=== PATIENT | male | born 1965 | race Caucasian/White ===

== ENCOUNTER 2017-07-27 10:25 | Emergency (ER) | payer MEDICAID ==
[2017-07-27] MEDS ORDERED: ONDANSETRON ODT 4 MG TABLET TL STA (12:12)
[2017-07-27] MEDS ORDERED: MECLIZINE 12.5 MG TABLET PO STA (12:12)
--- NOTE | 2017-07-27 12:15 | ED Physician Documentation ---
History of Present Illness - Stated complaint Stated Complaint: DIZZY - Chief complaint Chief Complaint: Neuro - History obtained from History obtained from: Patient - History of Present Illness Timing: Yesterday Pain level max: 0 Pain level now: 0 Improved by: Remaining still Worsened by: Moving - Additonal information Additional information: States that he became dizzy yesterday. Worse with changing positions, turning his head to the left or right and standing. Feels like the room is spinning around him. Denies any recent illnesses or travel. Has not had this happen to him before. No difficulty with speech, numbness or tingling in the extremities. Review of Systems Constitutional: denies: Fever, Chills Ears: denies: Ear pain Nose: denies: Rhinorrhea / runny nose, Congestion Throat: denies: Sore throat Cardiac: denies: Chest pain / pressure, Palpitations Respiratory: denies: Cough GI: reports: Nausea, Vomiting. denies: Abdominal Pain Musculoskeletal: reports: Back pain (Chronic and unchanged) Neurologic: denies: Focal weakness, Numbness, Confused, Altered mental status, Headache, Head injury PD PAST MEDICAL HISTORY - Past Medical History Cardiovascular: None Respiratory: None Endocrine/Autoimmune: None GI: None : Kidney stones HEENT: None Psych: None Musculoskeletal: None Derm: None - Past Surgical History Ortho: Other - Present Medications Home Medications: Ambulatory Orders Medication Instructions Recorded Confirmed Meclizine [Antivert] 25 mg PO Q6H PRN #20 tablet 07/27/17 Ondansetron Odt [Zofran] 4 mg TL Q6H PRN #10 tablet 07/27/17 - Allergies Allergies/Adverse Reactions: Allergies Allergy/AdvReac Type Severity Reaction Status Date / Time diphenhydramine Allergy Unknown Verified 07/27/17 10:49 [From Benadryl] - Social History Does the pt smoke?: Yes Smoking Status: Current every day smoker Does the pt drink ETOH?: No Substance Use and Type: Marijuana PD ED PE NORMAL - Vitals Vital signs reviewed: Yes - General General: Alert and oriented X 3, No acute distress - HEENT HEENT: PERRL, EOMI, Ears normal, Moist mucous membranes, Pharynx benign - Neck Neck: Supple, no meningeal sign - Cardiac Cardiac: RRR, Strong equal pulses - Respiratory Respiratory: No respiratory distress, Clear bilaterally - Abdomen Abdomen: Soft, Non tender, Non distended - Derm Derm: Warm and dry - Extremities Extremities: No edema, No calf tenderness / cord - Neuro Neuro: Alert and oriented X 3, 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, No motor deficit, No sensory deficit, Normal speech, Other (Positive Hallpike to the right) - Psych Psych: Normal mood, Normal affect Results - Vitals Vitals: Vital Signs - 24 hr 07/27/17 07/27/17 10:44 12:10 Temperature 36.5 C 36.7 C Heart Rate 89 78 Respiratory 16 20 Rate Blood Pressure 157/100 H 162/96 H O2 Saturation 95 99 Oxygen O2 Source Room air - EKG (time done) 1102 Rate: Rate (enter#) (71) Rhythm: NSR [place]: Normal Intervals: Normal DC QRS: Normal Ischemia: Normal ST segments Computer interpretation: Agree with computer PD MEDICAL DECISION MAKING - ED course Complexity details: reviewed results, re-evaluated patient, considered differential, d/w patient ED course: Patient is a 51-year-old gentleman who presents to the emergency department what appears to be benign paroxysmal positional vertigo. He is well-appearing, nontoxic. Afebrile. Feels better after meclizine, Zofran and a half somersault maneuver. We will continue supportive care and follow-up with his doctor. No evidence of stroke, intracranial hemorrhage. Patient counseled regarding signs and symptoms for which I believe and urgent re-evaluation would be necessary. Patient with good understanding of and agreement to plan and is comfortable going home at this time This document was made in part using voice recognition software. While efforts are made to proofread this document, sound alike and grammatical errors may occur. Departure - Departure Disposition: 01 Home, Self Care Clinical Impression: Vertigo Condition: Good Instructions: ED BPV Vertigo Follow-Up: your,doctor in 1 week [Other] Prescriptions: Meclizine [Antivert] 25 mg PO Q6H PRN #20 tablet PRN Reason: Vertigo Ondansetron Odt [Zofran] 4 mg TL Q6H PRN #10 tablet PRN Reason: Nausea / Vomiting Comments: Return if you worsen. This should improve over the next few days. You can try the half somersault maneuver or the Royer maneuver at home. There are videos on this on [employer]. It appears to be the right ear that is affected today Your blood pressure was elevated today on check in to the emergency department. This does not mean that you have hypertension, it is a common phenomenon to check into the emergency department and have elevated blood pressure. I recommend that you see your primary care physician within the week to have it rechecked when you're feeling better.
[2017-07-27] MEDS ORDERED: ONDANSETRON ODT 4 MG TABLET ONE (12:36)
[2017-07-27] MEDS ORDERED: MECLIZINE 12.5 MG TABLET PO ONE (12:36)
[2017-07-27 13:10] VITALS: BP 149/79
== END 2017-07-27 13:09 | disposition home or self-care (01) ==
LOC: ED 10:25
DX: R42 Dizziness and giddiness (principal); R03.0 Elevated blood-pressure reading, without diagnosis of hypertension; F17.200 Nicotine dependence, unspecified, uncomplicated
CPT/HCPCS: 93005; 99283; A9270; Q0162

== ENCOUNTER 2020-06-20 09:12 | Emergency (ER) | payer MEDICAID ==
[2020-06-20 09:33] VITALS: BP 151/106
[2020-06-20 09:56] LABS: RAPID STREP SCREEN Negative (Negative)
[2020-06-20] MEDS ORDERED: PENICILLIN VK 250 MG TABLET PO STA (10:00)
[2020-06-20] MEDS ORDERED: CHERRY SYRUP 10 ML UDC PO ONE (10:00)
[2020-06-20] MEDS ORDERED: DEXAMETHASONE 10 MG/ML VIAL PO STA (10:00)
[2020-06-20] MEDS ORDERED: IBUPROFEN 800 MG TABLET PO STA (10:00)
--- NOTE | 2020-06-20 10:07 | ED Physician Documentation ---
History of Present Illness - Stated complaint Stated Complaint: SORE THROAT - Chief complaint Chief Complaint: Heent - History obtained from History obtained from: Patient - History of Present Illness Timing: How many days ago (2) Pain level max: 6 Pain level now: 6 - Additonal information Additional information: 54-year-old male presents to the emergency department with a sore throat for the past 2 days. No fevers. No cough. No nausea or vomiting. Worse with swallowing, no recent travel. Does smoke. Review of Systems Constitutional: denies: Fever, Chills GI: denies: Vomiting, Diarrhea Skin: denies: Rash Musculoskeletal: denies: Neck pain, Back pain Neurologic: denies: Headache PD PAST MEDICAL HISTORY - Past Medical History Cardiovascular: None Respiratory: None Endocrine/Autoimmune: None GI: None : Kidney stones HEENT: None Psych: None Musculoskeletal: None Derm: None - Past Surgical History Past Surgical History: Yes Ortho: Other - Present Medications Home Medications: Ambulatory Orders Medication Instructions Recorded Confirmed Meclizine [Antivert] 25 mg PO Q6H PRN #20 tablet 07/27/17 Ondansetron Odt [Zofran] 4 mg TL Q6H PRN #10 tablet 07/27/17 Ibuprofen [Motrin] 800 mg PO Q8H PRN #30 tablet 06/20/20 Penicillin V Potassium 500 mg PO Q6HR #40 tablet 06/20/20 - Allergies Allergies/Adverse Reactions: Allergies Allergy/AdvReac Type Severity Reaction Status Date / Time diphenhydramine Allergy Unknown Verified 06/20/20 09:33 [From Benadryl] - Social History Does the pt smoke?: Yes Smoking Status: Current every day smoker Does the pt drink ETOH?: No Substance Use and Type: Marijuana - POLST Patient has POLST: No PD ED PE NORMAL - Vitals Vital signs reviewed: Yes - General General: Alert and oriented X 3, No acute distress - HEENT HEENT: Moist mucous membranes, Other (Posterior oropharynx is erythematous with tonsillar exudates. Normal phonation. No trismus. Uvula midline.) - Neck Neck: Supple, no meningeal sign, Other (Shotty anterior lymphadenopathy) - Cardiac Cardiac: RRR - Respiratory Respiratory: No respiratory distress, Clear bilaterally - Abdomen Abdomen: Soft, Non tender, Non distended - Derm Derm: Warm and dry - Neuro Neuro: Alert and oriented X 3 - Psych Psych: Normal mood, Normal affect Results - Vitals Vitals: Vital Signs - 24 hr 06/20/20 09:20 Temperature 36.3 C L Heart Rate 103 H Respiratory 16 Rate Blood Pressure 151/106 H O2 Saturation 98 Oxygen O2 Source Room air - Labs Labs: Laboratory Tests 06/20/20 09:37 Group A Strep Rapid Negative PD MEDICAL DECISION MAKING - ED course Complexity details: considered differential, d/w patient ED course: Patient with what appears to be strep pharyngitis clinically. He is well- appearing, nontoxic. Afebrile. No evidence of peritonsillar or retropharyngeal abscess. Normal phonation. No trismus. Patient counseled regarding signs and symptoms for which I believe and urgent re-evaluation would be necessary. Patient with good understanding of and agreement to plan and is comfortable going home at this time This document was made in part using voice recognition software. While efforts are made to proofread this document, sound alike and grammatical errors may occur. Departure - Departure Disposition: 01 Home, Self Care Clinical Impression: Strep pharyngitis Condition: Good Instructions: ED Strep Pharyngitis Poss Follow-Up: Your,doctor in 1 week [Other] Prescriptions: Penicillin V Potassium 500 mg PO Q6HR #40 tablet Ibuprofen [Motrin] 800 mg PO Q8H PRN #30 tablet PRN Reason: PAIN &/OR FEVER Comments: Take all antibiotics until gone. Return if you worsen. Follow-up with your doctor for further care. Discharge Date/Time: 06/20/20 10:00
== END 2020-06-20 10:00 | disposition home or self-care (01) ==
LOC: ED 09:12
DX: J02.0 Streptococcal pharyngitis (principal); F17.200 Nicotine dependence, unspecified, uncomplicated
CPT/HCPCS: 87070; 87430; 99283; 99284; A9270

== ENCOUNTER 2020-06-22 20:16 | Observation (INO) | payer MEDICAID ==
--- NOTE | 2020-06-22 20:18 | ED Physician Documentation ---
PD HPI ABD PAIN - Stated complaint Stated Complaint: LLQ PX - History obtained from History obtained from: Patient - History of Present Illness Timing - onset: Last night Timing - details: Gradual onset Pain level max: 8 Pain level now: 4 Quality: Cramping, Pain Location: All over / everywhere Radiation: Lower back (unclear if abd. pain is radiating to back or if this part of his chronic LBP) Improved by: Other (nothing) Worsened by: Eating Associated symptoms: Nausea. No: Fever, Vomiting, Diarrhea, Constipation Recently seen: Emergency Dept (T+R 2 days ago from this ED for pharyngitis) - Additional information Additional information: c/o abdominal pain, waxing and waning, since last night approximately 6 PM shortly after eating dinner. Pain has been constant since then, waxing and waning with diaphoresis when it is sever, predominantly across lower abdomen, worse with PO intake. Review of Systems Constitutional: reports: Sweats. denies: Fever, Chills Cardiac: reports: Reviewed and negative Respiratory: reports: Reviewed and negative GI: reports: Abdominal Pain, Nausea. denies: Abdominal Swelling, Vomiting, Constipation, Diarrhea : denies: Dysuria, Frequency Skin: denies: Rash Musculoskeletal: reports: Back pain PD PAST MEDICAL HISTORY - Past Medical History Cardiovascular: None Respiratory: None Endocrine/Autoimmune: None GI: None : Kidney stones HEENT: None Psych: None Musculoskeletal: None Derm: None - Past Surgical History Past Surgical History: Yes Ortho: Other - Present Medications Home Medications: Ambulatory Orders Medication Instructions Recorded Confirmed Meclizine [Antivert] 25 mg PO Q6H PRN #20 tablet 07/27/17 Ondansetron Odt [Zofran] 4 mg TL Q6H PRN #10 tablet 07/27/17 Ibuprofen [Motrin] 800 mg PO Q8H PRN #30 tablet 06/20/20 Penicillin V Potassium 500 mg PO Q6HR #40 tablet 06/20/20 Cephalexin [Keflex] 500 mg PO Q6H #28 capsule 06/22/20 Lidocaine Viscous 2% [Xylocaine 15 ml PO Q4H PRN #1 bottle 06/22/20 Viscous 2%] Ondansetron Odt [Zofran] 4 mg TL Q6H PRN #10 tablet 06/22/20 - Allergies Allergies/Adverse Reactions: Allergies Allergy/AdvReac Type Severity Reaction Status Date / Time diphenhydramine Allergy Unknown Verified 06/20/20 09:33 [From Benadryl] - Social History Does the pt smoke?: Yes Smoking Status: Current every day smoker Does the pt drink ETOH?: No - POLST Patient has POLST: No PD ED PE NORMAL - Vitals Vital signs reviewed: Yes - General General: Alert and oriented X 3, No acute distress, Well developed/nourished - HEENT HEENT: Moist mucous membranes - Neck Neck: Supple, no meningeal sign - Cardiac Cardiac: RRR, No murmur, No gallop, No rub - Respiratory Respiratory: No respiratory distress, Clear bilaterally - Abdomen Abdomen: Soft, Non distended, Other (mild TTP, worst in LLQ) - Back Back: No CVA TTP - Derm Derm: Normal color, Warm and dry, No rash PD ED PE EXPANDED - HEENT HEENT: Pharyngeal erythema (mild posterior oropharyngeal edema and mild edema, L>R; no exudate) Results - Vitals Vitals: Vital Signs - 24 hr 06/22/20 06/22/20 06/22/20 20:22 20:25 22:30 Temperature 35 C L 37 C 36.9 C Heart Rate 92 96 Respiratory 20 18 Rate Blood Pressure 158/98 H 148/96 H O2 Saturation 96 95 06/23/20 00:30 Temperature 36.8 C Heart Rate 87 Respiratory 16 Rate Blood Pressure 147/89 H O2 Saturation 96 Oxygen O2 Source Room air - Labs Labs: Laboratory Tests 06/22/20 06/22/20 06/22/20 20:42 20:42 21:40 WBC 13.9 H RBC 5.06 Hgb 15.8 Hct 46.2 MCV 91.3 MCH 31.2 H MCHC 34.2 RDW 14.2 Plt Count 305 MPV 9.9 Neut # (Auto) 10.0 H Lymph # (Auto) 2.6 [place] # (Auto) 1.0 Eos # (Auto) 0.2 Baso # (Auto) 0.1 Absolute Nucleated RBC 0.00 Nucleated RBC % 0.0 Sodium 135 Potassium 3.5 Chloride 100 L Carbon Dioxide 26 Anion Gap 9.0 BUN 14 Creatinine 0.6 Estimated GFR (MDRD) 139 Glucose 112 H Calcium 8.5 Total Bilirubin 0.7 AST 19 ALT 23 Alkaline Phosphatase 79 Total Protein 7.1 Albumin 3.7 Globulin 3.4 Albumin/Globulin Ratio 1.1 Lipase 19 L Urine Color YELLOW Urine Clarity CLEAR Urine pH 7.5 Ur Specific [place] 1.010 Urine Protein NEGATIVE Urine Glucose (UA) NEGATIVE Urine Ketones NEGATIVE Urine Occult Blood NEGATIVE Urine Nitrite NEGATIVE Urine Bilirubin NEGATIVE Urine Urobilinogen 0.2 (NORMAL) Ur Leukocyte Esterase NEGATIVE Ur Microscopic Review NOT INDICATED Urine Culture Comments NOT INDICATED - Rads (name of study) CT A/P Radiology: Prelim report reviewed, See rad report RUQ US Radiology: Prelim report reviewed, See rad report PD MEDICAL DECISION MAKING - ED course Complexity details: reviewed old records, reviewed results, re-evaluated patient, considered differential, d/w patient ED course: On reevaluation, after blood tests and CT resulted, patient is resting comfortably and in NAD. Results d/w patient; although he says his pain has subsided, he voices concern that his symptoms have seemed to reliably return with any PO intake. Given maalox and viscous lidocaine which resulted in abrupt return of his abdominal pain and obvious painful distress with diaphoresis. He now indicates his pain is in RUQ and epigastrium. D/W Dr. Queen; agrees patient is appropriate for observation but says he cannot enter orders at this time as he has no computer at home. D/W Dr. Sesay, will admit to [facility] with surgery consult. Departure - Departure Disposition: ED Place in Observation Clinical Impression: Abdominal pain Qualifiers: Abdominal location: generalized Qualified Code(s): R10.84 - Generalized abdominal pain Condition: Stable Discharge Date/Time: 06/23/20 01:58
[2020-06-22] MEDS ORDERED: PANTOPRAZOLE 40 MG VIAL IVP STA (20:37)
[2020-06-22] MEDS ORDERED: SODIUM CHLORIDE 0.9% 1,000 ML IV STA (20:37)
[2020-06-22] MEDS ORDERED: ONDANSETRON 4 MG/2 ML VIAL IVP STA (20:37)
[2020-06-22 20:49] LABS: BASOPHILS # (AUTO) 0.1 10^3/uL (0.0-0.1); BASOPHILS % (AUTO) 0.4 %; EOSINOPHILS # (AUTO) 0.2 10^3/uL (0.0-0.7); EOSINOPHILS % (AUTO) 1.4 %; HGB - HEMOGLOBIN 15.8 g/dL (14.0-18.0); LYMPHOCYTES # (AUTO) 2.6 10^3/uL (1.5-3.5); LYMPHOCYTES % (AUTO) 18.5 %; MEAN CORPUSCULAR HEMOGLOBIN 31.2 pg (27.0-31.0); MEAN CORPUSCULAR HGB CONC 34.2 g/dL (32.0-36.0); MEAN CORPUSCULAR VOLUME 91.3 fL (80.0-94.0); MEAN PLATELET VOLUME 9.9 fL (7.4-11.4); MONOCYTES % (AUTO) 6.9 %; NEUTROPHILS % (AUTO) 72.3 %; PLT - PLATELET COUNT 305 10^3/uL (130-450); RED BLOOD COUNT 5.06 10^6/uL (4.70-6.10); RED CELL DISTRIBUTION WIDTH 14.2 % (12.0-15.0); WHITE BLOOD COUNT 13.9 x10^3/uL (4.8-10.8)
[2020-06-22] MEDS ORDERED: IOVERSOL 320 100 ML VIAL IVP ONE ×3 (20:59→22:13)
[2020-06-22 21:03] LABS: ALBUMIN 3.7 g/dL (3.2-5.5); ALBUMIN/GLOBULIN RATIO 1.1 (1.0-2.2); BILIRUBIN,TOTAL 0.7 mg/dL (0.2-1.0); CALCIUM 8.5 mg/dL (8.5-10.3); CREATININE 0.6 mg/dL (0.6-1.2); TOTAL PROTEIN 7.1 g/dL (6.7-8.2)
--- NOTE | 2020-06-22 21:50 | CT Report ---
PROCEDURE: Abdomen/Pelvis W INDICATIONS: abd. pain CONTRAST: IV CONTRAST: Optiray 320 ml: 100 PO CONTRAST: *NO PO CONTRAST TECHNIQUE: After the administration of intravenous contrast, 5 mm thick sections acquired from the diaphragms to the symphysis. 5 mm thick coronal and sagittal reformats were acquired. For radiation dose reducti on, the following was used: automated exposure control, adjustment of mA and/or kV according to amrita ent size. COMPARISON: None. FINDINGS: Image quality: Excellent. ABDOMEN: Lung bases: Lung bases are clear. Heart size is normal. Solid organs: Liver and spleen are normal in size and enhancement. Calcified gallstones are layering in the gallbladder fundus. No gallbladder wall thickening or pericholecystic fluid. Biliary system i s non dilated. Pancreas enhances normally. No discrete adrenal gland nodules; however there is nodul ar thickening of the bilateral adrenal glands which may be associated with small adrenal adenomas. Ki dneys demonstrate normal size and enhancement, without hydronephrosis. A low density cystic lesion i s present at the upper pole of the right kidney. A nonobstructing 4 mm calculus is present at the low er pole of the left kidney. Peritoneum and bowel: Bowel loops demonstrate normal wall thickness and caliber. The appendix is thi n-walled and gas-filled. There are scattered sigmoid colon diverticular outpouchings. No mucosal thic kening or pericolonic fat stranding. No free fluid or air. Nodes and vessels: No retroperitoneal or mesenteric adenopathy by size criteria. Aorta and inferior vena cava are normal in size. Miscellaneous: No ventral hernias. PELVIS: Genitourinary: Bladder wall thickness is normal. Miscellaneous: No inguinal adenopathy. There are small bilateral fat-containing inguinal hernias. Bones: No suspicious bony lesions. No vertebral body compression fractures. IMPRESSION: 1. No acute intra-abdominal findings. Normal appendix. 2. Diverticulosis. No acute diverticulitis. 3. Cholelithiasis. No findings to suggest choledocholithiasis or acute cholecystitis. 4. Nonobstructive left nephrolithiasis. 5. Probable bilateral adrenal adenomas which are incompletely characterized. If further characterizat ion is warranted, nonemergent adrenal mass protocol CT could be used. Reviewed by: Nazia Negron MD on 06/22/2020 9:49 PM PDT Approved by: Nazia Negron MD on 06/22/2020 9:49 PM PDT Station ID: [id number]
[2020-06-22 21:59] LABS: BILIRUBIN,URINE NEGATIVE (NEGATIVE); GLUCOSE, URINE (UA) NEGATIVE (NEGATIVE); KETONES,URINE (UA) NEGATIVE (NEGATIVE); LEUKOCYTE ESTERASE, URINE NEGATIVE (NEGATIVE); NITRITE,URINE NEGATIVE (NEGATIVE); OCCULT BLOOD,URINE NEGATIVE (NEGATIVE); PH,URINE 7.5 PH (5.0-7.5); PROTEIN,URINE NEGATIVE (NEGATIVE); UROBILINOGEN,URINE 0.2 (NORMAL) E.U./dL (NORMAL)
[2020-06-22 22:24] LABS: CLARITY,URINE CLEAR (CLEAR)
[2020-06-22] MEDS ORDERED: LIDOCAINE VISCOUS 2% 15 ML UDC MM STA (22:41)
[2020-06-22] MEDS ORDERED: MAG HYDROX/AL HYDROX/SIMETH 30 ML UDC PO STA (22:41)
[2020-06-23] MEDS ORDERED: SODIUM CHLORIDE 0.9% 1,000 ML IV STA (00:06)
[2020-06-23] MEDS ORDERED: SODIUM CHLORIDE FLUSH 0.9% 10 ML SYRINGE IVP PRN (00:46)
[2020-06-23] MEDS ORDERED: MORPHINE 2 MG/ML CARPUJECT IVP PRN (00:46)
[2020-06-23] MEDS ORDERED: ONDANSETRON 4 MG/2 ML VIAL IVP PRN (00:46)
[2020-06-23] MEDS ORDERED: PROCHLORPERAZINE 10 MG/2 ML VIAL IVP PRN (00:46)
--- NOTE | 2020-06-23 00:51 | HISTORY & PHYSICAL EXAMINATION ---
Chief Complaint - Chief Complaint Chief Complaint: Abdominal pain History of Present Illness - Admitted From Admitted From:: Home via EMS to ER - History Obtained From Records Reviewed: [facility] History obtained from: Dr. Chang and patient Exam Limitations: None - History of Present Illness HPI Comment/Other: Is a 54-year-old white male who was seen in our emergency room for sore throat on June 20. He was treated as possible bacterial pharyngitis and given penicillin. Cultures have been negative. On Saturday, after dinner, he developed gradual onset of cramping, diffuse abdominal pain. It was radiating to his lower back. While he had nausea, he did not have emesis. He did not have fever, diarrhea, blood in his stools. This went off and on from Saturday until tonight's visit to the ER. He was seen in our emergency room where he was afebrile, mildly hypertensive at 158/98. 96% O2 sat. He had a mild posterior oropharyngeal edema. His abdomen was nondistended, had left lower quadrant pain on initial evaluation which then changed to right upper quadrant abdominal pain. He tells me that most of his pain is in the upper epigastric region in a generalized fashion that seems to radiate down. It comes and goes. Will fade away but then come back with severe intensity and become a 10 out of a 10. He did have bowel sounds. Last bowel movement was yesterday. White cell count was elevated at 13,000. CT scan shows nonobstructing left nephrolithiasis, no acute intra-abdominal findings. He does have diverticulosis without diverticulitis. Cholelithiasis but no surrounding edema or inflammation around the gallbladder. He has probable bilateral adrenal adenomas that would need to be evaluated. He also has small bilateral fat-containing inguinal hernias.He says that he does have a history of kidney stones. But the kidney stones of always hurt in the flank and down his back. He is never had anterior abdominal pain like this.He does take Aleve about every other day for chronic back pain. General surgery, Dr. Queen was contacted. While he does feel the patient needs to be placed in observation for abdominal pain, he does not have a computer at home to allow him to do admit orders. As such he is asking the hospitalist service to place the patient in observation for him. He has informed Dr. Chang that he will be seeing the patient in the morning. History - Past Medical History Cardiovascular: reports: None Respiratory: reports: None Neuro: reports: Other (Chronic vertigo for 3 years. Really bad when he turns his head to the right. Laying flat on his back, turning over in bed on the right side, will bring it on. He will get so nauseated with it.) Endocrine/Autoimmune: reports: None GI: reports: None : reports: Kidney stones HEENT: reports: None Psych: reports: None Musculoskeletal: reports: Other (Right arm tendon surgery.) Derm: reports: None MRSA Hx?: No Other Past Medical History: Pt denies any other health history at this time - Past Surgical History Ortho: reports: Other (Right arm tendon surgery.) - Family & Social History Family History Comment/Other: Mom drove off a bridge in [place] while drunk. in her 40s. Dad remarried and from what he gathered from his stepmom, dad of stomach cancer. One half sister is healthy. One half brother of a drug overdose. 2 children are completely healthy. Living arrangement: At home Living Situation: Other (He is the caregiver of a friend of his. He has lived with her and taking care of her now for 6 to 7 years.) Social History Notes: He is originally from [place]. He came out to the [facility] to help his half brother. He was in severe legal problems as well as drug problems in [place] so they thought that moving him out to the [facility] would help him with his issues. In the end he ended up accidentally drug overdosing with heroin 3 years ago. The patient has lived here since about 2006. He occasionally goes back to [place] because he misses his family. 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 [place], he has been unemployed with odd jobs and got his current job after this woman tried to pick them up at the [employer]. They ended up becoming good friends. She developed rheumatoid arthritis that was severe. So he lives with her, takes care of her. Does all the housework, cooking, cleaning. Drives her to her appointments. Sometimes helps her with activities of daily living since she is so stiff. He is smoked since the age of 10. Smokes 1 pack/day. Would love to try and quit. He also smokes pot on a daily basis. Has tried other recreational substances in the past when he was on the road, but he is never become an addict. He has been twice. Has 2 children that do not live in the area. He does not have a power of health care attorney. If push comes to shove his second ex- is probably the person we should call. - POLST Patient has POLST: No POLST Status: Full Code Meds/Allgy - Home Medications Home Medications: Ambulatory Orders Medication Instructions Recorded Confirmed Meclizine [Antivert] 25 mg PO Q6H PRN #20 tablet 07/27/17 Ondansetron Odt [Zofran] 4 mg TL Q6H PRN #10 tablet 07/27/17 Ibuprofen [Motrin] 800 mg PO Q8H PRN #30 tablet 06/20/20 Penicillin V Potassium 500 mg PO Q6HR #40 tablet 06/20/20 Cephalexin [Keflex] 500 mg PO Q6H #28 capsule 06/22/20 Lidocaine Viscous 2% [Xylocaine 15 ml PO Q4H PRN #1 bottle 06/22/20 Viscous 2%] Ondansetron Odt [Zofran] 4 mg TL Q6H PRN #10 tablet 06/22/20 - Allergies Allergies/Adverse Reactions: Allergies Allergy/AdvReac Type Severity Reaction Status Date / Time diphenhydramine Allergy Unknown Verified 06/20/20 09:33 [From Aria] Review of Systems - Constitutional Constitutional: reports: Poor appetite. denies: Fatigue, Fever, Chills, Malaise - Eyes Eyes: denies: Pain, Irritation, Amaurosis, Blurred vision, Field loss, Dipolpia - Ears, Nose & Throat Ears, Nose & Throat: reports: Hearing loss, Vertigo, Sore throat, Hoarseness. denies: Hearing aids - Cardiovascular Cariovascular: denies: Irregular heart rate, Palpitations, Chest pain, Edema, Syncope, Exertional dyspnea, Decr. exercise tolerance - Respiratory Respiratory: reports: Cough (Daily for years as well as sputum production.), Sputum production. denies: Wheezing, Snoring, Hemoptysis, Orthopnea, SOB at r est, SOB with exertion, Apnea, Pleuritic pain - Gastrointestinal Gastrointestinal: reports: Abdominal pain, Nausea, Poor appetite. denies: Abdominal distention, Constipation, Diarrhea, Change in bowel habits, Black stools, Bloody stools, Vomiting - Genitourinary Genitourinary: reports: Flank pain (In the past when he is had kidney stones. None now.). denies: Dysuria, Frequency, Urgency, Hematuria, Incontinence - Musculoskeletal Musculoskeletal: reports: Back pain. denies: Muscle pain, Muscle aches, Stiffness - Integumentary Integumentary: denies: Rash, Pruritis, Lesions - Neurological Neurological: reports: Dizziness. denies: General weakness, Focal weakness, Headache - Psychiatric Psychiatric: denies: Depression, Anxiety, Suicidal - Endocrine Endocrine: denies: Polyuria, Polydypsia, Polyphagia - Hematologic/Lymphatic Hematologic/Lymphatic: denies: Anemia, Bruising, Petechiae Prior Level of Functionality: Independent with his activities of daily living. Is a care provider of another person. Exam - Vital Signs Reviewed Vital Signs: Yes Vital Signs: Vital Signs x48h Temp Pulse Resp BP Pulse Ox 06/22/20 22:30 36.9 C 96 18 148/96 H 95 06/22/20 20:25 37 C 06/22/20 20:22 35 C L 92 20 158/98 H 96 - Physical Exam General Appearance: positive: No acute distress, Alert, Other (Hoarse voice, disheveled, middle-aged white male) Eyes Bilateral: positive: PERRL, EOMI ENT: positive: Pharyngeal erythema Neck: positive: No JVD, Lymphadenopathy (R), Lymphadenopathy (L). negative: St iff neck, Carotid bruit Respiratory: positive: Chest non-tender, No respiratory distress. negative: Wheezes, Rales, Rhonchi Cardiovascular: positive: Regular rate & rhythm. negative: Systolic murmur, Gallop/S4, Friction rub Peripheral Pulses: positive: 1+ Abdomen: positive: Nml bowel sounds, Tenderness (Upper abdomen. Centered around the epigastrium. But it is both right upper quadrant and left upper quadrant on my exam.), Other (Obese abdominal pannus). negative: No distention, Guarding, R ebound Skin: positive: Warm, Dry, Other (Multiple tattoos) Extremities: positive: Non-tender, Full ROM, No pedal edema, Other (Fingers with proximal interphalangeal osteoarthritis) Neurologic/Psychiatric: positive: Oriented x3, CN's nml (2-12), Motor nml, Sensation nml Conclusion/Plan - Problem List (1) Abdominal pain Conclusion/Plan: His abdominal pain exam is changed while he has been in the emergency room. It went from generalized to left lower quadrant than right upper quadrant. Unclear if he is having cholelithiasis with biliary colic, or a passing kidney stone without obstruction. He could also be having gastritis from the use of nonsteroidals every other day. He does have an elevated white cell count. Urinalysis is negative for hematuria indicating that it may not be a stone as a cause. Pain in the emergency room is impressive. He is crying out with pain. Plan: Placed in observation N.p.o. after midnight May have clears up until then General surgery consult in the morning [facility] tomorrow Follow CBC and LFTs Qualifiers: Abdominal location: generalized Qualified Code(s): R10.84 - Generalized abdominal pain (2) Vertigo Conclusion/Plan: Chronic problem for him. Not necessarily associated with new deafness. No nyst agmus on exam. Describes it as worse with putting his head down on a pillow and then turning his head to the right. Plan: Outpatient referral for ENT eval PT eval for Royer maneuver (3) Strep pharyngitis Conclusion/Plan: Mild pharyngitis on examination. White cell count is 13.9. Complete antibiotics with penicillin IV. (4) Tobacco abuse Conclusion/Plan: I have advised him to stop smoking. He rationalizes that the treatment that would help him stop smoking is worse than smoking. He mentions the side effects of Chantix, Ativan, nicotine patch, etc. I pointed out to him that while he is correct, those side effects are low in probability as opposed to the probability of him getting emphysema or lung cancer. I still recommend he stop smoking.He declines a nicotine patch tonight. However he is occasionally agitated in the emergency room and I will give him Ativan IV as needed. (5) Unavailability of primary care appointment Conclusion/Plan: He has an insurance plan that tells him that the nearest primary care provider is in [place]. I told him that I have the same insurance plan he does and [place] We [place] have social work see him and see if we can get an appointment [place] - Lab Results Lab results reviewed: Yes Fish Bones: 06/22/20 20:42 06/22/20 20:42 - Diagnostic Imaging Results Diagnostic Imaging Results: positive: Final report reviewed Diagnostic Imaging Results Comments: PROCEDURE: Abdomen/Pelvis W INDICATIONS: abd. pain CONTRAST: IV CONTRAST: Optiray 320 ml: 100 PO CONTRAST: *NO PO CONTRAST TECHNIQUE: After the administration of intravenous contrast, 5 mm thick sections acquired from the diaphragms to the symphysis. 5 mm thick coronal and sagittal reformats were acquired. For radiation dose reduction, the following was used: automated exposure control, adjustment of mA and/or kV according to patient size. COMPARISON: None. FINDINGS: Image quality: Excellent. ABDOMEN: Lung bases: Lung bases are clear. Heart size is normal. Solid organs: Liver and spleen are normal in size and enhancement. Calcified gallstones are layering in the gallbladder fundus. No gallbladder wall thickening or pericholecystic fluid. Biliary system is non dilated. Pancreas enhances normally. No discrete adrenal gland nodules; however there is nodular thickening of the bilateral adrenal glands which may be associated with small adrenal adenomas. Kidneys demonstrate normal size and enhancement, without hydronephrosis. A low density cystic lesion is present at the upper pole of the right kidney. A nonobstructing 4 mm calculus is present at the lower pole of the left kidney. Peritoneum and bowel: Bowel loops demonstrate normal wall thickness and caliber. The appendix is thin-walled and gas-filled. There are scattered sigmoid colon diverticular outpouchings. No mucosal thickening or pericolonic fat stranding. No free fluid or air. Nodes and vessels: No retroperitoneal or mesenteric adenopathy by size criteria. Aorta and inferior vena cava are normal in size. Miscellaneous: No ventral hernias. PELVIS: Genitourinary: Bladder wall thickness is normal. Miscellaneous: No inguinal adenopathy. There are small bilateral fat-containing inguinal hernias. Bones: No suspicious bony lesions. No vertebral body compression fractures. IMPRESSION: 1. No acute intra-abdominal findings. Normal appendix. 2. Diverticulosis. No acute diverticulitis. 3. Cholelithiasis. No findings to suggest choledocholithiasis or acute cholecystitis. 4. Nonobstructive left nephrolithiasis. 5. Probable bilateral adrenal adenomas which are incompletely characterized. If further characterization is warranted, nonemergent adrenal mass protocol CT could be used. Reviewed by: Nazia Negron MD on 06/22/2020 9:49 PM PDT Approved by: Nazia Negron MD on 06/22/2020 9:49 PM PDT Core Measures - Anticipated LOS I expect patient to be DC'd or transferred within 96 hours.: Yes - DVT/VTE - Prophylaxis VTE/DVT Device ordered at admit?: Yes
[2020-06-23] MEDS ORDERED: SODIUM CHLORIDE 0.9% 1,000 ML IV SCH (01:00)
[2020-06-23] MEDS ORDERED: LORazepam 2 MG/ML VIAL IVP PRN (01:45)
[2020-06-23] MEDS ORDERED: cefTRIAXone 1 GM in SODIUM CHLORIDE 0.9% MINIBAG 100 ML IV SCH (02:00)
[2020-06-23] MEDS: SODIUM CHLORIDE FLUSH 0.9% 10 ML SYRINGE IVP SCH ×2 (02:23→09:52)
[2020-06-23 05:47] LABS: BASOPHILS # (AUTO) 0.1 10^3/uL (0.0-0.1); BASOPHILS % (AUTO) 0.5 %; EOSINOPHILS # (AUTO) 0.2 10^3/uL (0.0-0.7); EOSINOPHILS % (AUTO) 1.5 %; HGB - HEMOGLOBIN 14.7 g/dL (14.0-18.0); LYMPHOCYTES # (AUTO) 3.4 10^3/uL (1.5-3.5); LYMPHOCYTES % (AUTO) 29.1 %; MEAN CORPUSCULAR HEMOGLOBIN 30.4 pg (27.0-31.0); MEAN CORPUSCULAR HGB CONC 33.4 g/dL (32.0-36.0); MEAN CORPUSCULAR VOLUME 91.1 fL (80.0-94.0); MEAN PLATELET VOLUME 9.8 fL (7.4-11.4); MONOCYTES # (AUTO) 0.8 10^3/uL (0.0-1.0); NEUTROPHILS # (AUTO) 7.1 10^3/uL (1.5-6.6); NEUTROPHILS % (AUTO) 61.4 %; PLT - PLATELET COUNT 281 10^3/uL (130-450); RED BLOOD COUNT 4.83 10^6/uL (4.70-6.10); WHITE BLOOD COUNT 11.5 x10^3/uL (4.8-10.8)
[2020-06-23 05:58] LABS: ALBUMIN 3.5 g/dL (3.2-5.5); ALBUMIN/GLOBULIN RATIO 1.1 (1.0-2.2); BILIRUBIN,TOTAL 0.7 mg/dL (0.2-1.0); CALCIUM 8.3 mg/dL (8.5-10.3); CREATININE 0.6 mg/dL (0.6-1.2); TOTAL PROTEIN 6.7 g/dL (6.7-8.2)
--- NOTE | 2020-06-23 08:49 | HISTORY & PHYSICAL EXAMINATION ---
Chief Complaint - Chief Complaint Chief Complaint: admitted with abdominal pain Abdominal Pain HPI - History Obtained From History obtained from: Patient Exam limitations: No limitations - History of Present Illness Severity at the worst: Moderate Pain Quality: Sharp, Burning HPI Comment/Other: He developed a sore throat nearly a week ago. He was seen and evaluated for possible strep throat. His throat is feeling better but still sore. 2 days ago he started having epigastric pain and lower abdominal pain worse with eating or drinking. He feels much improved this am and is feeling hungry. He has not had a bm for 4 days; however, does not feel constipated. He states he used to have reflux symptoms many years ago. This improved with weight loss and better diet. He denies having change in bowel habits. We discussed he has 2 large mobile non obstructing gallstones. He denies symptoms consistent with biliary cholic PMH/PSH - Past Medical History Cardiovascular: positive: None Respiratory: positive: None Neuro: positive: Other Endocrine/Autoimmune: positive: None GI: positive: None : positive: Kidney stones HEENT: positive: None Psych: positive: None Musculoskeletal: positive: None Derm: positive: None MRSA Hx?: No Other Past Medical History: Pt denies any other health history at this time. Intermittent Dizziness - Past Surgical History Ortho: positive: Other Social & Family Hx - Social History Does the pt smoke?: Yes Smoking Status: Current every day smoker Does the pt drink ETOH?: No Does the pt have substance abuse?: No - POLST Patient has POLST: No POLST Status: Full Code Meds/Allgy - Home Medications Home Medications: Ambulatory Orders Medication Instructions Recorded Confirmed Meclizine [Antivert] 25 mg PO Q6H PRN #20 tablet 07/27/17 Ondansetron Odt [Zofran] 4 mg TL Q6H PRN #10 tablet 07/27/17 Ibuprofen [Motrin] 800 mg PO Q8H PRN #30 tablet 06/20/20 Penicillin V Potassium 500 mg PO Q6HR #40 tablet 06/20/20 Cephalexin [Keflex] 500 mg PO Q6H #28 capsule 06/22/20 Lidocaine Viscous 2% [Xylocaine 15 ml PO Q4H PRN #1 bottle 06/22/20 Viscous 2%] Ondansetron Odt [Zofran] 4 mg TL Q6H PRN #10 tablet 06/22/20 - Allergies Allergies/Adverse Reactions: Allergies Allergy/AdvReac Type Severity Reaction Status Date / Time diphenhydramine Allergy Unknown Verified 06/20/20 09:33 [From Benadryl] Review of Systems - Constitutional Constitutional: reports: Fatigue (10 pt ros as above and below otherwise unremarkable) Exam - Vital Signs Vital Signs: Vital Signs x48h Temp Pulse Resp BP BP Pulse Ox 06/23/20 08:00 36.6 C 88 18 146/93 H 98 06/23/20 04:04 36.4 C L 95 18 158/75 H 96 06/23/20 01:45 36.8 C 106 H 16 143/102 H 97 - Physical Exam General Appearance: positive: No acute distress, Alert Eyes Bilateral: positive: Normal inspection, PERRL ENT: positive: No signs of dehydration Neck: positive: No JVD Respiratory: positive: No respiratory distress Abdomen: positive: Non-tender, No distention Extremities: positive: No pedal edema Neurologic/Psychiatric: positive: Oriented x3 Results - Lab Results Fish Bones: 06/23/20 05:34 06/23/20 05:34 Other Lab Results: Lab Results x24hrs 06/23/20 06/23/20 06/22/20 Range/Units 05:34 05:34 21:40 WBC 11.5 H (4.8-10.8) x10^3/uL RBC 4.83 (4.70-6.10) 10^6/uL Hgb 14.7 (14.0-18.0) g/dL Hct 44.0 (42.0-52.0) % MCV 91.1 (80.0-94.0) fL MCH 30.4 (27.0-31.0) pg MCHC 33.4 (32.0-36.0) g/dL RDW 14.0 (12.0-15.0) % Plt Count 281 (130-450) 10^3/uL MPV 9.8 (7.4-11.4) fL Neut # (Auto) 7.1 H (1.5-6.6) 10^3/uL Lymph # (Auto) 3.4 (1.5-3.5) 10^3/uL [place] # (Auto) 0.8 (0.0-1.0) 10^3/uL Eos # (Auto) 0.2 (0.0-0.7) 10^3/uL Baso # (Auto) 0.1 (0.0-0.1) 10^3/uL Absolute Nucleated RBC 0.00 x10^3/uL Nucleated RBC % 0.0 /100WBC Sodium 135 (135-145) mmol/L Potassium 3.8 (3.5-5.0) mmol/L Chloride 105 (101-111) mmol/L Carbon Dioxide 23 (21-32) mmol/L Anion Gap 7.0 (6-13) BUN 13 (6-20) mg/dL Creatinine 0.6 (0.6-1.2) mg/dL Estimated GFR (MDRD) 139 (>89) Glucose 108 H (70-100) mg/dL Calcium 8.3 L (8.5-10.3) mg/dL Total Bilirubin 0.7 (0.2-1.0) mg/dL AST 17 (10-42) IU/L ALT 23 (10-60) IU/L Alkaline Phosphatase 73 (42-121) IU/L Total Protein 6.7 (6.7-8.2) g/dL Albumin 3.5 (3.2-5.5) g/dL Globulin 3.2 (2.1-4.2) g/dL Albumin/Globulin Ratio 1.1 (1.0-2.2) Lipase (22-51) U/L Urine Color YELLOW Urine Clarity CLEAR (CLEAR) Urine pH 7.5 (5.0-7.5) PH Ur Specific Ramsey 1.010 (1.002-1.030) Urine Protein NEGATIVE (NEGATIVE) mg/dL Urine Glucose (UA) NEGATIVE (NEGATIVE) mg/dL Urine Ketones NEGATIVE (NEGATIVE) mg/dL Urine Occult Blood NEGATIVE (NEGATIVE) Urine Nitrite NEGATIVE (NEGATIVE) Urine Bilirubin NEGATIVE (NEGATIVE) Urine Urobilinogen 0.2 (NORMAL) (NORMAL) E.U./dL Ur Leukocyte Esterase NEGATIVE (NEGATIVE) Ur Microscopic Review NOT INDICATED Urine Culture Comments NOT INDICATED 06/22/20 06/22/20 Range/Units 20:42 20:42 WBC 13.9 H (4.8-10.8) x10^3/uL RBC 5.06 (4.70-6.10) 10^6/uL Hgb 15.8 (14.0-18.0) g/dL Hct 46.2 (42.0-52.0) % MCV 91.3 (80.0-94.0) fL MCH 31.2 H (27.0-31.0) pg MCHC 34.2 (32.0-36.0) g/dL RDW 14.2 (12.0-15.0) % Plt Count 305 (130-450) 10^3/uL MPV 9.9 (7.4-11.4) fL Neut # (Auto) 10.0 H (1.5-6.6) 10^3/uL Lymph # (Auto) 2.6 (1.5-3.5) 10^3/uL [place] # (Auto) 1.0 (0.0-1.0) 10^3/uL Eos # (Auto) 0.2 (0.0-0.7) 10^3/uL Baso # (Auto) 0.1 (0.0-0.1) 10^3/uL Absolute Nucleated RBC 0.00 x10^3/uL Nucleated RBC % 0.0 /100WBC Sodium 135 (135-145) mmol/L Potassium 3.5 (3.5-5.0) mmol/L Chloride 100 L (101-111) mmol/L Carbon Dioxide 26 (21-32) mmol/L Anion Gap 9.0 (6-13) BUN 14 (6-20) mg/dL Creatinine 0.6 (0.6-1.2) mg/dL Estimated GFR (MDRD) 139 (>89) Glucose 112 H (70-100) mg/dL Calcium 8.5 (8.5-10.3) mg/dL Total Bilirubin 0.7 (0.2-1.0) mg/dL AST 19 (10-42) IU/L ALT 23 (10-60) IU/L Alkaline Phosphatase 79 (42-121) IU/L Total Protein 7.1 (6.7-8.2) g/dL Albumin 3.7 (3.2-5.5) g/dL Globulin 3.4 (2.1-4.2) g/dL Albumin/Globulin Ratio 1.1 (1.0-2.2) Lipase 19 L (22-51) U/L Urine Color Urine Clarity (CLEAR) Urine pH (5.0-7.5) PH Ur Specific Ramsey (1.002-1.030) Urine Protein (NEGATIVE) mg/dL Urine Glucose (UA) (NEGATIVE) mg/dL Urine Ketones (NEGATIVE) mg/dL Urine Occult Blood (NEGATIVE) Urine Nitrite (NEGATIVE) Urine Bilirubin (NEGATIVE) Urine Urobilinogen (NORMAL) E.U./dL Ur Leukocyte Esterase (NEGATIVE) Ur Microscopic Review Urine Culture Comments - Diagnostic Imaging Results Diagnostic Imaging Results: positive: Other (ct and ultrasound pictures reviewed.) Impression/Plan - Problem List Problem List: sore throat followed by vague fairly diffuse abdominal pain. He is much improved. He has 2 gallstones without cholecystitis or biliary cholic He has diverticulosis without inflammation Normal appendix We discussed he does not have inflammation or infection in his abdomen and surge ry is not needed. No upper intestinal alarm symptoms for significant pathology. Diet of choice
--- NOTE | 2020-06-23 10:27 | Ultrasound Report ---
PROCEDURE: Abdomen Limited INDICATIONS: abd. pain TECHNIQUE: Real-time scanning was performed of the abdominal and retroperitoneal organs, with image documentatio n. COMPARISON: None. FINDINGS: Liver: Liver is enlarged measuring 17.5 cm. Gallbladder: Dependent stones are present. Wall thickness is within normal limits measuring 2.5 mm. Biliary ducts: Intrahepatic bile ducts are non-dilated. Extrahepatic bile duct caliber measures 5 m m. Normal is 6-7 mm or less in diameter, or 10 mm or less post-cholecystectomy. Kidneys: Kidneys are normal in size and echotexture. Right kidney measures 12.0 cm long;No hydronep hrosis or nephrolithiasis. There is a focal area of low echogenicity in the right upper lobe measurin g 17 x 21 x 20 mm. Aorta: Visualized aorta is normal in caliber at less than 3 cm. IVC: Intrahepatic inferior vena cava is patent. IMPRESSION: 1. Cholelithiasis without imaging evidence of cholecystitis. 2. Right renal cyst. The above findings are concordant with preliminary report. Reviewed by: Leeele Yodre MD on 06/23/2020 10:26 AM PDT Approved by: Leelee Yoder MD on 06/23/2020 10:26 AM PDT Station ID: [id number]
--- NOTE | 2020-06-23 11:50 | Discharge Plan ---
Discharge Plan Problem Reviewed?: Yes Disposition: Home, Self Care Condition: Stable Prescriptions: Pantoprazole [Protonix] 40 mg PO DAILY #30 tablet Lidocaine Viscous 2% [Xylocaine Viscous 2%] 15 ml PO Q4H PRN #1 bottle PRN Reason: Abdominal Pain Ondansetron Odt [Zofran] 4 mg TL Q6H PRN #10 tablet PRN Reason: Nausea / Vomiting Diet: Regular Activity Restrictions: Activity as Tolerated Instruction Topics: Gastritis, Gastritis Tx Health Concerns: You were seen in the hospital because of abdominal pain. A CT scan of your abdomen showed gallstones but no obvious source of your abdominal pain. You were evaluated by the surgeon who felt that this is not related to your gallstones at this time. They felt that you do not need surgery and you are stable for discharge Plan of Treatment: Please stop taking Aleve as this may cause gastritis which may explain your pain. Please start taking Protonix 40 mg daily which helps suppress the acid in your stomach. Please make appointment with a primary care provider and asked to be referred to general surgery as you may need an endoscopy in the future which is when they placed the camera down your throat into your stomach to evaluate for inflammation and ulcers. Care Goals: Please return to the emergency department if you develop any worsening abdominal pain, fevers, chills or inability to tolerate oral intake. Assessment: Patient expressed understanding of the treatment plan. Additional Instructions or Follow Up instructions: Please make an appointment with a primary care provider within 1 to 2 weeks and asked to be referred to general surgery. No Smoking: If you smoke, Please STOP! Call for help.
--- NOTE | 2020-06-23 12:17 | DISCHARGE SUMMARY ---
"Discharge Summary Admit Date: 06/23/20 Discharge Date: 06/23/20 Discharging Provider: Ric Gusman Primary Care Provider: No PCP Code Status: Attempt Resuscitation Condition at Discharge: Stable Discharge Disposition: 01 Home, Self Care - DIAGNOSES Admission Diagnoses: Abdominal pain Vertigo Strep pharyngitis Tobacco abuse Bilateral adrenal adenomas Discharge Diagnoses with Status of Each Condition: Abdominal pain - stable. Strep pharyngitis - stable. Tobacco abuse - stable. Bilateral adrenal adenomas - stable. - HPI History of Present Illness: H&P per Dr. Sesay: Is a 54-year-old white male who was seen in our emergency room for sore throat on June 20. He was treated as possible bacterial pharyngitis and given penicillin. Cultures have been negative. On Saturday, after dinner, he developed gradual onset of cramping, diffuse abdominal pain. It was radiating to his lower back. While he had nausea, he did not have emesis. He did not have fever, diarrhea, blood in his stools. This went off and on from Saturday until briseyda's visit to the ER. He was seen in our emergency room where he was afebrile, mildly hypertensive at 158/98. 96% O2 sat. He had a mild posterior oropharyngeal edema. His abdomen was nondistended, had left lower quadrant pain on initial evaluation which then changed to right upper quadrant abdominal pain. He tells me that most of his pain is in the upper epigastric region in a generalized fashion that seems to radiate down. It comes and goes. Will fade away but then come back with severe intensity and become a 10 out of a 10. He did have bowel sounds. Last bowel movement was yesterday. White cell count was elevated at 13,000. CT scan shows nonobstructing left nephrolithiasis, no acute intra-abdominal findings. He does have diverticulosis without diverticulitis. Cholelithiasis but no surrounding edema or inflammation around the gallbladder. He has probable bilateral adrenal adenomas that would need to be evaluated. He also has small bilateral fat-containing inguinal hernias.He says that he does have a history of kidney stones. But the kidney stones of always hurt in the flank and down his back. He is never had anterior abdominal pain like this.He does take Aleve about every other day for chronic back pain. General surgery, Dr. Queen was contacted. While he does feel the patient needs to be placed in observation for abdominal pain, he does not have a computer at home to allow him to do admit orders. As such he is asking the hospitalist service to place the patient in observation for him. He has informed Dr. Chang that he will be seeing the patient in the morning. - CONSULTS | PROCEDURES Consultations: General Surgery Procedures: CT of the abdomen pelvis with IV contrast showed no acute intra-abdominal findings. Normal appendix. Diverticulosis. No acute reticulitis. Cholelithiasis. No's findings suggest choledocholithiasis or acute cholecystitis. Nonobstructive left nephrolithiasis. Probable bilateral adrenal adenomas which are incompletely characterized. If further condition is warranted, nonemergent renal mass protocol CT could be used. Right upper quadrant ultrasound showed cholelithiasis without evidence of cholecystitis. Right renal cyst. - HOSPITAL COURSE Hospital Course: He is admitted to the floor for abdominal pain and started on a clear liquid diet. His pain was postprandial and located predominantly epigastric region although initially was in the left lower quadrant as well. He was evaluated by general surgery who felt that this was not biliary colic. They recommended no surgical intervention at this time. Right upper quad abdominal ultrasound was obtained which showed cholelithiasis but no evidence of cholecystitis. Rates his pain is well controlled and so he was discharged in stable condition. He was asked to discontinue NSAIDs and he started on Protonix for possible gastritis. He was provided with a list of primary care providers as he does not have a PCP. He will be making an appointment and asked to be referred to general surgeon outpatient basis for possible endoscopy if his abdominal pain persists. He was also asked to continue his penicillin for the strep pharyngitis he was diagnosed with a few days ago. He will also need outpatient follow-up for the possible bilateral adrenal adenomas. - ALLERGIES Allergies/Adverse Reactions: Allergies Allergy/AdvReac Type Severity Reaction Status Date / Time diphenhydramine Allergy Unknown Verified 06/20/20 09:33 [From Benadryl] - MEDICATIONS Home Medications: Ambulatory Orders Medication Instructions Recorded Confirmed Penicillin V Potassium 500 mg PO Q6HR #40 tablet 06/20/20 Lidocaine Viscous 2% [Xylocaine 15 ml PO Q4H PRN #1 bottle 06/22/20 Viscous 2%] Ondansetron Odt [Zofran] 4 mg TL Q6H PRN #10 tablet 06/22/20 Pantoprazole [Protonix] 40 mg PO DAILY #30 tablet 06/23/20 - PHYSICAL EXAM AT DISCHARGE General Appearance: positive: No acute distress, Alert Eyes Bilateral: positive: Normal inspection, Conjunctivae nml ENT: positive: ENT inspection nml Neck: positive: Nml inspection Respiratory: positive: No respiratory distress. negative: Wheezes, Rales Cardiovascular: positive: Regular rate & rhythm. negative: Tachycardia, Bradycardia, Systolic murmur Abdomen: positive: Nml bowel sounds, Tenderness (Mild epigastric tenderness.). negative: Non-tender, Guarding, Rebound Skin: positive: No rash, Warm, Dry Extremities: positive: Full ROM, No pedal edema Neurologic/Psychiatric: positive: Oriented x3, Motor nml, Disoriented to person, Disoriented to place, Disoriented to time Physical Exam Other/Comments: Vital Signs - 24 hr 06/22/20 06/22/20 06/22/20 20:22 20:25 22:30 Temperature 35 C L 37 C 36.9 C Heart Rate 92 96 Heart Rate [ Brachial] Respiratory 20 18 Rate Blood Pressure 158/98 H 148/96 H Blood Pressure [Left Brachial artery] Blood Pressure [Right Brachial artery] O2 Saturation 96 95 06/23/20 06/23/20 06/23/20 00:30 01:45 04:04 Temperature 36.8 C 36.8 C 36.4 C L Heart Rate 87 Heart Rate [ 106 H 95 Brachial] Respiratory 16 16 18 Rate Blood Pressure 147/89 H Blood Pressure 158/75 H [Left Brachial artery] Blood Pressure 143/102 H [Right Brachial artery] O2 Saturation 96 97 96 06/23/20 06/23/20 08:00 12:34 Temperature 36.6 C 36.6 C Heart Rate Heart Rate [ 88 88 Brachial] Respiratory 18 16 Rate Blood Pressure Blood Pressure 146/93 H [Left Brachial artery] Blood Pressure 144/89 H [Right Brachial artery] O2 Saturation 98 98 Oxygen O2 Source Room air - LABS Result Diagrams: 06/23/20 05:34 06/23/20 05:34 - DIAGNOSTIC IMAGING Diagnostic Imaging Results: Final report reviewed - FOLLOW UP Follow Up: He was provided with a list of primary care providers and will be making an appointment. - TIME SPENT Time Spent in Discharge (Minutes): 30"
[2020-06-23 12:36] VITALS: BP 144/89
== END 2020-06-23 13:20 | disposition home or self-care (01) ==
LOC: EDUNIT# → ED 20:16 → MS3 06-23 00:46
PROVIDERS: ADMIT Specialist; ATTEND Internal Medicine
DX: R10.9 Unspecified abdominal pain (principal); N20.0 Calculus of kidney; K57.30 Diverticulosis of large intestine without perforation or abscess without bleeding; K80.20 Calculus of gallbladder without cholecystitis without obstruction; K40.20 Bilateral inguinal hernia, without obstruction or gangrene, not specified as recurrent; N28.1 Cyst of kidney, acquired; D35.02 Benign neoplasm of left adrenal gland; D35.01 Benign neoplasm of right adrenal gland; J02.0 Streptococcal pharyngitis; R42 Dizziness and giddiness; F17.210 Nicotine dependence, cigarettes, uncomplicated; Z79.1 Long term (current) use of non-steroidal anti-inflammatories (NSAID); Z79.899 Other long term (current) drug therapy; Z87.442 Personal history of urinary calculi
CPT/HCPCS: 36415; 74177; 76705; 80053; 81003; 83690; 85025; 96361; 96365; 96375; 99284; 99285; A9270; G0378; Q9967; 81001; 87086

== ENCOUNTER 2020-06-22 21:26 | Outpatient (CLI) | payer MEDICAID | END 2020-06-22 21:27 | disposition critical access hospital (66) | LOC: EMS 21:26 | PROVIDERS: ATTEND Surgery | DX: R10.32 Left lower quadrant pain (principal); K59.00 Constipation, unspecified | CPT/HCPCS: A0425; A0429 ==

== ENCOUNTER 2021-03-09 18:49 | Emergency (ER) | payer MEDICAID ==
[2021-03-09 19:04] VITALS: BP 142/91
--- NOTE | 2021-03-09 19:22 | ED Physician Documentation ---
History of Present Illness - Stated complaint Stated Complaint: RT FINGER PX/SWELLING - Chief complaint Chief Complaint: Ext Problem - History obtained from History obtained from: Patient - History of Present Illness Timing: How many days ago (10) Pain level now: 6 Improved by: rest Worsened by: palpation - Additonal information Additional information: patient is right hand dominant. c/o gradual onset, atraumatic right 4th finger pain, swelling, redness at tip and around nail. Denies h/o similar symptoms. Review of Systems Constitutional: denies: Fever Musculoskeletal: reports: Extremity pain, Extremity swelling Neurologic: denies: Focal weakness, Numbness PD PAST MEDICAL HISTORY - Past Medical History Past Medical History: No Cardiovascular: None Respiratory: None Neuro: None Endocrine/Autoimmune: None GI: None : Kidney stones HEENT: None Psych: None Musculoskeletal: None Derm: None - Past Surgical History Past Surgical History: Yes Ortho: Other - Present Medications Home Medications: Ambulatory Orders Medication Instructions Recorded Confirmed Penicillin V Potassium 500 mg PO Q6HR #40 tablet 06/20/20 Lidocaine Viscous 2% [Xylocaine 15 ml PO Q4H PRN #1 bottle 06/22/20 Viscous 2%] Ondansetron Odt [Zofran] 4 mg TL Q6H PRN #10 tablet 06/22/20 Ondansetron Odt [Zofran Odt] 4 mg TL Q6H PRN #10 tablet 06/23/20 Pantoprazole [Protonix] 40 mg PO DAILY #30 tablet 06/23/20 oxyCODONE [Roxicodone] 5 mg PO Q4HR PRN #20 tablet 06/23/20 Amox/Clav 875/125 [Augmentin 1 tablet PO Q12H 10 Days #20 tablet 03/09/21 875/125 Tab] HYDROcod/ACETAM 5/325 [[place] 5/325] 1 - 2 tablet PO Q6H PRN #14 tablet 03/09/21 - Allergies Allergies/Adverse Reactions: Allergies Allergy/AdvReac Type Severity Reaction Status Date / Time diphenhydramine Allergy Unknown Verified 06/20/20 09:33 [From Benadryl] - Social History Does the pt smoke?: Yes Smoking Status: Current every day smoker Does the pt drink ETOH?: No Does the pt have substance abuse?: No - Immunizations Immunizations are current?: No Immunizations: TDAP >10years/unknown - POLST Patient has POLST: No PD ED PE NORMAL - Vitals Vital signs reviewed: Yes - General General: Alert and oriented X 3, No acute distress, Well developed/nourished PD ED PE EXPANDED - Extremities Extremities: Tenderness ROSEY UE/Hands Visual: 1 - swelling (erythema, swelling, exquisite tenderness, fluctuance; joints, including DIP joint, not affected and ROM intact in all joints) Results - Vitals Vitals: Vital Signs - 24 hr 03/09/21 18:58 Temperature 36.2 C L Heart Rate 100 Respiratory 16 Rate Blood Pressure 142/91 H O2 Saturation 99 Oxygen O2 Source Room air - Labs Labs: Microbiology 03/09/21 20:00 Wound Culture - Preliminary Finger - Right Ring Procedures - Abscess I&D (location) Finger right Preparation: Lidocaine 1%, Marcaine 0.5%, Other (digital block) Incision: Incised with scalpel, Purulent drainage, Culture obtained Other: Pt tolerated well, Antibiotic prescribed - Regional nerve block Nerve block site: Digital - note digit(s) (right ring finger) Right / left: Right Nerve block anesthesia: Lidocaine 1%, Marcaine 0.5%, Other (1:1 mixture) Nerve block aftercare: Excellent anesthesia, Patient tolerated well, No complications PD MEDICAL DECISION MAKING - ED course Complexity details: reviewed results, re-evaluated patient, considered differential, d/w patient Departure - Departure Disposition: 01 Home, Self Care Clinical Impression: Paronychia Condition: Good Instructions: ED Abscess IandD, ED Fingernail Infec Prescriptions: Amox/Clav 875/125 [Augmentin 875/125 Tab] 1 tablet PO Q12H 10 Days #20 tablet HYDROcod/ACETAM 5/325 [[place] 5/325] 1 - 2 tablet PO Q6H PRN #14 tablet PRN Reason: Pain Comments: Follow up with your primary care provider in 3-4 days for recheck of the wound Discharge Date/Time: 03/09/21 20:34
[2021-03-09] MEDS ORDERED: BUPIVACAINE 0.5% PF 10 ML VIAL SUBQ STA (19:37)
[2021-03-09] MEDS ORDERED: LIDOCAINE 1% 2 ML VIAL SUBQ STA (19:38)
[2021-03-09] MEDS ORDERED: AMOX/CLAV 875 MG/125 MG TABLET PO STA (20:20)
[2021-03-09] MEDS ORDERED: HYDROcod/ACET 5/325 Prepack 4 PO STA (20:21)
== END 2021-03-09 20:34 | disposition home or self-care (01) ==
LOC: ED 18:49
DX: L03.011 Cellulitis of right finger (principal); F17.200 Nicotine dependence, unspecified, uncomplicated
CPT/HCPCS: 10060; 87070; 87205; 99283; A9270

== ENCOUNTER 2021-06-03 05:30 | Emergency (ER) | payer MEDICAID ==
--- NOTE | 2021-06-03 05:49 | ED Physician Documentation ---
PD HPI ABD PAIN - Stated complaint Stated Complaint: L SIDE PX - Chief complaint Chief Complaint: Abd Pain - History obtained from History obtained from: Patient - History of Present Illness Timing - onset: Enter time (23:00) Timing - details: Abrupt onset Pain level now: 8 Quality: Pain Location: LUQ Radiation: Left flank Improved by: Other (nothing) Worsened by: Other (no exacerbating factors) Associated symptoms: Nausea. No: Fever, Vomiting, Diarrhea, Constipation Similar symptoms before: Diagnosis (similar to previous episodes of renal colic) Recently seen: Not recently seen - Additional information Additional information: c/o sudden onset left flank pain since 11 PM last night, onset while at home at rest. Pain waxes and wanes without apparent exacerbating or ameliorating factors. nausea but no vomiting. he feels that the symptoms are similar to previous episodes of renal colic Review of Systems Constitutional: reports: Sweats. denies: Fever, Chills Cardiac: reports: Reviewed and negative Respiratory: reports: Reviewed and negative GI: reports: Abdominal Pain (left flank), Nausea. denies: Vomiting, Constipation, Diarrhea : denies: Dysuria, Frequency, Hematuria PD PAST MEDICAL HISTORY - Past Medical History Cardiovascular: None Respiratory: None Neuro: None Endocrine/Autoimmune: None GI: None : Kidney stones HEENT: None Psych: None Musculoskeletal: None Derm: None - Past Surgical History Past Surgical History: Yes Ortho: Other - Present Medications Home Medications: Ambulatory Orders Medication Instructions Recorded Confirmed HYDROcod/ACETAM 5/325 [[place] 5/325] 1 - 2 tablet PO Q6H PRN #14 tablet 06/03/21 Ondansetron Odt [Zofran] 4 mg TL Q6H PRN #14 tablet 06/03/21 Tamsulosin [Flomax] 0.4 mg PO DAILY #10 06/03/21 - Allergies Allergies/Adverse Reactions: Allergies Allergy/AdvReac Type Severity Reaction Status Date / Time diphenhydramine Allergy Unknown Verified 06/03/21 05:47 [From Benadryl] - Social History Does the pt smoke?: Yes Smoking Status: Current every day smoker Does the pt drink ETOH?: No Does the pt have substance abuse?: No - Immunizations Immunizations are current?: No Immunizations: TDAP >10years/unknown - POLST Patient has POLST: No POLST Status: Full Code PD ED PE NORMAL - Vitals Vital signs reviewed: Yes - General General: Alert and oriented X 3, Well developed/nourished, Other (appears to be in mild/moderate painful distress at times during H+P) - Cardiac Cardiac: RRR, No murmur - Respiratory Respiratory: No respiratory distress, Clear bilaterally - Abdomen Abdomen: Soft, Non tender, Non distended - Back Back: No CVA TTP Results - Vitals Vitals: Vital Signs - 24 hr 06/03/21 06/03/21 06/03/21 05:35 06:24 06:45 Temperature 36.2 C L 36.5 C Heart Rate 87 87 88 Respiratory 18 18 19 Rate Blood Pressure 169/100 H 180/102 H 161/107 H O2 Saturation 97 94 96 06/03/21 07:00 Temperature Heart Rate 89 Respiratory 20 Rate Blood Pressure 170/93 H O2 Saturation 95 Oxygen O2 Source Room air - Labs Labs: Laboratory Tests 06/03/21 06/03/21 06/03/21 05:45 06:10 06:10 WBC 14.1 H RBC 4.86 Hgb 15.3 Hct 45.2 MCV 93.0 MCH 31.5 H MCHC 33.8 RDW 14.3 Plt Count 293 MPV 9.2 Neut # (Auto) 11.8 H Lymph # (Auto) 1.3 L [place] # (Auto) 0.8 Eos # (Auto) 0.2 Baso # (Auto) 0.1 Absolute Nucleated RBC 0.00 Nucleated RBC % 0.0 Sodium 136 Potassium 3.5 Chloride 101 Carbon Dioxide 24 Anion Gap 11.0 BUN 15 Creatinine 0.7 Estimated GFR (MDRD) 116 Glucose 137 H Calcium 8.6 Urine Color YELLOW Urine Clarity CLEAR Urine pH 6.5 Ur Specific Anabel 1.025 Urine Protein NEGATIVE Urine Glucose (UA) NEGATIVE Urine Ketones NEGATIVE Urine Occult Blood LARGE H Urine Nitrite NEGATIVE Urine Bilirubin NEGATIVE Urine Urobilinogen 1 (NORMAL) Ur Leukocyte Esterase NEGATIVE Urine RBC TNTC H Urine WBC 0-3 Ur Squamous Epith Cells RARE Squamous Urine Bacteria None Seen Urine Mucus Few Strands Ur Microscopic Review INDICATED Urine Culture Comments NOT INDICATED - Rads (name of study) CT A/P without contrast Radiology: Prelim report reviewed, See rad report PD MEDICAL DECISION MAKING - ED course Complexity details: reviewed results, re-evaluated patient, considered differential, d/w patient ED course: HPI s/o renal colic. UA demonstrates hematuria and CT confirms 5.5 x 6 x 6.5 mm ureteral calculus immediately proximal to UVJ with moderate left hydronephrosis. He is given 500ml NS bolus IV as well as 1mg dilaudid, 30mg toradol, and 4mg zofran. On reevaluation after tests resulted, patient reports feeling much improved although he is markedly diaphoretic and reports ongoing, though attenuated, nausea. He is given another 500cc NS and 4mg zofran Departure - Departure Disposition: 01 Home, Self Care Clinical Impression: Renal colic on left side Condition: Good Instructions: ED Stone Renal W Colic Prescriptions: Tamsulosin [Flomax] 0.4 mg PO DAILY #10 HYDROcod/ACETAM 5/325 [[place] 5/325] 1 - 2 tablet PO Q6H PRN #14 tablet PRN Reason: Pain Ondansetron Odt [Zofran] 4 mg TL Q6H PRN #14 tablet PRN Reason: Nausea / Vomiting Comments: You should follow up with a urologist. If you do not have a urologist, you will need a referral; to obtain the referral, you can either contact your insurance provider or your primary care provider's office. Some insurance providers require that you first see your primary care provider. I am prescribing a short course of narcotic pain medication for you. These are potentially dangerous and addictive medications that should be used carefully. These medications may constipate you. Take an [id number] stool softener (docusate) twice daily with plenty of water while taking these medications. If you go 24 hours without a bowel movement, take [id number] miralax, per package instructions. Do not drink or drive while taking these medications. If you received narcotic or sedating medications while in the emergency department, do not drive for 24 hours. Store this medication in a safe, secure place and out of reach of children. It is a violation of federal law to give or sell this medication to another person or to use in a manner other than prescribed. The ED will not refill narcotic prescriptions, including prescriptions lost or stolen. To dispose of unwanted medications: 1. [facility] at [address] [facility] in [place] has a medication drop box. They accept prescription medications (in pill form) Saturday through Saturday 9:00 a.m. to 5:00 p.m. 2. The [facility] [employer] accepts prescription medications (in pill form only) for disposal year round. Call for more in formation. 3. Contact the [facility] for the next [facility] sponsored prescription drug collection event. , [phone], or [phone]; Discharge Date/Time: 06/03/21 09:32
[2021-06-03 06:02] LABS: BILIRUBIN,URINE NEGATIVE (NEGATIVE); CLARITY,URINE CLEAR (CLEAR); GLUCOSE, URINE (UA) NEGATIVE (NEGATIVE); KETONES,URINE (UA) NEGATIVE (NEGATIVE); LEUKOCYTE ESTERASE, URINE NEGATIVE (NEGATIVE); NITRITE,URINE NEGATIVE (NEGATIVE); OCCULT BLOOD,URINE LARGE (NEGATIVE); PH,URINE 6.5 PH (5.0-7.5); PROTEIN,URINE NEGATIVE (NEGATIVE); UROBILINOGEN,URINE 1 (NORMAL) E.U./dL (NORMAL)
[2021-06-03] MEDS ORDERED: SODIUM CHLORIDE 0.9% 500 ML IV STA ×2 (06:03→07:07)
[2021-06-03] MEDS ORDERED: ONDANSETRON 4 MG/2 ML VIAL IVP STA ×2 (06:03→07:07)
[2021-06-03] MEDS ORDERED: KETOROLAC 30 MG/ML VIAL IVP STA (06:03)
[2021-06-03] MEDS ORDERED: HYDROmorphone 1 MG/ML CARPUJECT IVP STA (06:03)
[2021-06-03 06:08] LABS: BACTERIA,URINE None Seen /HPF (None Seen); MUCUS,URINE Few Strands; RBC,URINE TNTC /HPF (0-5); SQUAMOUS EPITHELIAL CELL,UR RARE Squamous (<= Few); WBC,URINE 0-3 /HPF (0-3)
[2021-06-03 06:22] LABS: BASOPHILS # (AUTO) 0.1 10^3/uL (0.0-0.1); BASOPHILS % (AUTO) 0.5 %; EOSINOPHILS # (AUTO) 0.2 10^3/uL (0.0-0.7); EOSINOPHILS % (AUTO) 1.7 %; HCT - HEMATOCRIT 45.2 % (42.0-52.0); HGB - HEMOGLOBIN 15.3 g/dL (14.0-18.0); LYMPHOCYTES # (AUTO) 1.3 10^3/uL (1.5-3.5); LYMPHOCYTES % (AUTO) 8.9 %; MEAN CORPUSCULAR HEMOGLOBIN 31.5 pg (27.0-31.0); MEAN CORPUSCULAR HGB CONC 33.8 g/dL (32.0-36.0); MEAN PLATELET VOLUME 9.2 fL (7.4-11.4); MONOCYTES # (AUTO) 0.8 10^3/uL (0.0-1.0); MONOCYTES % (AUTO) 5.3 %; NEUTROPHILS # (AUTO) 11.8 10^3/uL (1.5-6.6); NEUTROPHILS % (AUTO) 83.3 %; PLT - PLATELET COUNT 293 10^3/uL (130-450); RED BLOOD COUNT 4.86 10^6/uL (4.70-6.10); RED CELL DISTRIBUTION WIDTH 14.3 % (12.0-15.0); WHITE BLOOD COUNT 14.1 x10^3/uL (4.8-10.8)
[2021-06-03 06:29] LABS: CALCIUM 8.6 mg/dL (8.5-10.3); CREATININE 0.7 mg/dL (0.6-1.2); POTASSIUM 3.5 mmol/L (3.5-5.0)
[2021-06-03] MEDS ORDERED: ONDANSETRON 4 MG/2 ML VIAL ONE (07:04)
[2021-06-03 07:05] VITALS: BP 170/93
[2021-06-03] MEDS ORDERED: TAMSULOSIN 0.4 MG CAPSULE PO STA (07:07)
--- NOTE | 2021-06-03 08:53 | CT Report ---
PROCEDURE: Abdomen/Pelvis WO INDICATIONS: left flank pain TECHNIQUE: Noncontrast 5 mm thick sections acquired from the diaphragms to the symphysis. 5 mm coronal and sagi ttal reformats were then performed. For radiation dose reduction, the following was used: automated exposure control, adjustment of mA and/or kV according to patient size. COMPARISON: None. FINDINGS: Image quality: Excellent. ABDOMEN: Lung bases: Lung bases are clear. Heart size is normal. Solid organs: Moderate left hydronephrosis and hydroureter noted associated with a 5.5 x 6.5 mm calcu kennedy, just proximal to the ureterovesical junction. No right hydronephrosis. Liver and spleen are unre markable. Multiple calculi present in the gallbladder without gallbladder wall thickening or perichol ecystic fluid. Pancreas unremarkable. Small bilateral adrenal nodules low density measuring -2 Hounsfield units, consistent with adenomas, stable from prior. Peritoneum and bowel: Unenhanced bowel loops demonstrate normal wall thickness and caliber. No free fluid or air. Multiple diverticula arise from the sigmoid colon without evidence of diverticulitis. Nodes and vessels: No retroperitoneal or mesenteric adenopathy by size criteria. Aorta and inferior vena cava are normal in caliber. Miscellaneous: No ventral hernias. PELVIS: Genitourinary: Bladder wall thickness is normal. Miscellaneous: No inguinal hernias or adenopathy. Bones: No suspicious bony lesions. No vertebral body compression fractures. IMPRESSION: 1. Moderate left objective uropathy resulting from 6.5 mm distal left ureteral calculus. 2. Cholelithiasis without CT evidence of acute cholecystitis. 3. Diverticulosis without evidence of diverticulitis 4. Stable small subcentimeter adrenal adenomas Note: Final report is concordant with preliminary report provided by [facility] Reviewed by: Nabil Leo MD on 06/03/2021 7:52 AM AKANA Approved by: Nabil Leo MD on 06/03/2021 7:52 AM AKDT Station ID: [id number]
== END 2021-06-03 09:32 | disposition home or self-care (01) ==
LOC: ED 05:30
DX: N13.2 Hydronephrosis with renal and ureteral calculous obstruction (principal); F17.200 Nicotine dependence, unspecified, uncomplicated; Z87.442 Personal history of urinary calculi
CPT/HCPCS: 36415; 74176; 80048; 81001; 85025; 96374; 96375; 96376; 99284; A9270; J1170; 81003; 87086

== ENCOUNTER 2021-07-15 20:58 | Emergency (ER) | payer MEDICAID ==
--- NOTE | 2021-07-15 21:39 | ED Physician Documentation ---
PD HPI ABD PAIN - Stated complaint Stated Complaint: ABD PX,VOMITING - Chief complaint Chief Complaint: Abd Pain - History obtained from History obtained from: Patient - History of Present Illness Timing - onset: Today Timing - duration: Hours Timing - details: Abrupt onset, Still present Quality: Aching, Sharp, Pain Location: LLQ Radiation: Left flank Improved by: No: Vomiting, Position Worsened by: Palpation. No: Moving Associated symptoms: Nausea, Vomiting. No: Fever, Diarrhea, Constipation, Dysuria Similar symptoms before: Diagnosis (The patient was seen 5 to 6 weeks ago on June 03, 2021 for similar symptoms caused by a 6.5 mm stone on the left distal ureter. He states he felt well on discharge from the ER and did not have recurrent pains except mild ache at times with urination. Recurrent pain severely tonight.) Review of Systems Constitutional: denies: Fever, Chills Nose: denies: Rhinorrhea / runny nose, Congestion Throat: denies: Sore throat Cardiac: denies: Chest pain / pressure Respiratory: denies: Cough GI: reports: Abdominal Pain, Nausea, Vomiting. denies: Abdominal Swelling, Constipation, Diarrhea : denies: Dysuria, Hematuria Skin: denies: Rash PD PAST MEDICAL HISTORY - Past Medical History Cardiovascular: None Respiratory: None Neuro: None Endocrine/Autoimmune: None GI: None : Kidney stones HEENT: None Psych: None Musculoskeletal: None Derm: None - Past Surgical History Past Surgical History: Yes Ortho: Other - Present Medications Home Medications: Ambulatory Orders Medication Instructions Recorded Confirmed Ondansetron Odt [Zofran] 4 mg TL Q6H PRN #15 tablet 07/15/21 Tamsulosin [Flomax] 0.4 mg PO DAILY #5 cap 07/15/21 dexAMETHasone [Decadron] 4 mg PO DAILY #5 tablet 07/15/21 - Allergies Allergies/Adverse Reactions: Allergies Allergy/AdvReac Type Severity Reaction Status Date / Time diphenhydramine Allergy Severe Respiratory Verified 07/15/21 21:13 [From Benadryl] - Social History Does the pt smoke?: Yes Smoking Status: Current every day smoker Does the pt drink ETOH?: No Does the pt have substance abuse?: No - Immunizations Immunizations are current?: No Immunizations: TDAP >10years/unknown - POLST Patient has POLST: No POLST Status: Full Code PD ED PE NORMAL - Vitals Vital signs reviewed: Yes - General General: Alert and oriented X 3, Well developed/nourished, Other (appears in co nsiderable discomfort. ) - Neck Neck: Supple, no meningeal sign, No adenopathy - Cardiac Cardiac: RRR, No murmur - Respiratory Respiratory: Clear bilaterally - Abdomen Abdomen: Normal bowel sounds, Soft, Non distended, No organomegaly, Other (M ildly tender without guarding or percussion tenderness in the left lower quadrant. Mild left CVA tenderness. No skin rash or sores.) - Male Male : Deferred - Rectal Rectal: Deferred - Back Back: Other (mild left CVA tender to percussion. ) - Derm Derm: Warm and dry. No: Normal color (mild pallor) - Neuro Neuro: Alert and oriented X 3, No motor deficit, Normal speech Results - Vitals Vitals: Vital Signs - 24 hr 07/15/21 07/15/21 07/15/21 21:11 22:30 23:28 Temperature 36.3 C L Heart Rate 88 87 93 Respiratory 16 18 18 Rate Blood Pressure 152/109 H 177/97 H 173/101 H O2 Saturation 97 93 95 Oxygen O2 Source Room air - Labs Labs: Laboratory Tests 07/15/21 07/15/21 22:03 22:03 WBC 9.4 RBC 4.98 Hgb 15.5 Hct 45.3 MCV 91.0 MCH 31.1 H MCHC 34.2 RDW 13.9 Plt Count 271 MPV 9.3 Neut # (Auto) 6.0 Lymph # (Auto) 2.2 Morgan # (Auto) 0.7 Eos # (Auto) 0.4 Baso # (Auto) 0.1 Absolute Nucleated RBC 0.00 Nucleated RBC % 0.0 Sodium 140 Potassium 3.5 Chloride 103 Carbon Dioxide 27 Anion Gap 10.0 BUN 14 Creatinine 0.9 Estimated GFR (MDRD) 87 L Glucose 164 H Calcium 9.2 Total Bilirubin 0.3 AST 15 ALT 16 Alkaline Phosphatase 80 Total Protein 7.8 Albumin 4.2 Globulin 3.6 Albumin/Globulin Ratio 1.2 Lipase 24 - Rads (name of study) abd CT Radiology: Prelim report reviewed (same size stone in essentially similar location, perhaps slightly closer to bladder. No other acute process. ), See rad report PD MEDICAL DECISION MAKING - ED course Complexity details: reviewed results (same stone apparently not passed as yet. ), re-evaluated patient (improved symptoms with meds. Able to head home. He declined Rx for opiates. ), considered differential (His CT scan from May showed the ureteral stone without any in the kidneys. Its possible he may not have passed that initial 1. Other consideration would be another new stone or diverticulitis instead etc.), d/w patient Departure - Departure Disposition: Home, Self Care Clinical Impression: Renal colic on left side, Ureterolithiasis Condition: Stable Record reviewed to determine appropriate education?: Yes Instructions: ED Stone Renal W Colic Follow-Up: Erlinda Mei MD [Provider Admit Priv/Credential] - Prescriptions: dexAMETHasone [Decadron] 4 mg PO DAILY #5 tablet Tamsulosin [Flomax] 0.4 mg PO DAILY #5 cap Ondansetron Odt [Zofran] 4 mg TL Q6H PRN #15 tablet PRN Reason: Nausea / Vomiting Comments: Your pain appears to be the same stone from last month that has not passed. Its slightly more at the opening end of the ureter. Regular hydration and diet and activity. Use some anti-inflammatory such as ibuprofen 400 to 600 mg 3 times a day with food. Also tamsulosin (Flomax) daily for the next 5 days is the standard medication use by urologist to try to promote stone passage. Decadron anti-inflammatory as well to decrease inflammation of the ureter to also try to promote passage of the stone. Add ondansetron if needed for nausea and Tylenol every 4-6 hours if needed for pain. I would suggest following up with a urologist, as this might need cystoscopic removal, since it has not passed in this period of time. I provided the name of one of the urology clinics in [place], and they do see patients in [place] as well. Call to set up an appointment with one of the urologist in that group. Let them know that you have had a stone for 5 weeks that has not passed. Return to the ER if needed for severe pain. I transmitted the prescription to [email or web address] in [place]. Discharge Date/Time: 07/15/21 23:36
[2021-07-15] MEDS ORDERED: HYDROmorphone 1 MG/ML CARPUJECT IVP STA (21:47)
[2021-07-15] MEDS ORDERED: ONDANSETRON 4 MG/2 ML VIAL IVP STA (21:47)
[2021-07-15] MEDS ORDERED: KETOROLAC 15 MG/ML VIAL IVP STA (21:47)
[2021-07-15] MEDS ORDERED: SODIUM CHLORIDE 0.9% 1,000 ML IV STA (21:47)
[2021-07-15 22:08] LABS: BASOPHILS # (AUTO) 0.1 10^3/uL (0.0-0.1); EOSINOPHILS # (AUTO) 0.4 10^3/uL (0.0-0.7); EOSINOPHILS % (AUTO) 4.6 %; HCT - HEMATOCRIT 45.3 % (42.0-52.0); HGB - HEMOGLOBIN 15.5 g/dL (14.0-18.0); LYMPHOCYTES # (AUTO) 2.2 10^3/uL (1.5-3.5); LYMPHOCYTES % (AUTO) 23.1 %; MEAN CORPUSCULAR HEMOGLOBIN 31.1 pg (27.0-31.0); MEAN CORPUSCULAR HGB CONC 34.2 g/dL (32.0-36.0); MEAN PLATELET VOLUME 9.3 fL (7.4-11.4); MONOCYTES # (AUTO) 0.7 10^3/uL (0.0-1.0); MONOCYTES % (AUTO) 7.6 %; NEUTROPHILS % (AUTO) 63.5 %; PLT - PLATELET COUNT 271 10^3/uL (130-450); RED BLOOD COUNT 4.98 10^6/uL (4.70-6.10); RED CELL DISTRIBUTION WIDTH 13.9 % (12.0-15.0); WHITE BLOOD COUNT 9.4 x10^3/uL (4.8-10.8)
[2021-07-15 22:22] LABS: ALBUMIN 4.2 g/dL (3.2-5.5); ALBUMIN/GLOBULIN RATIO 1.2 (1.0-2.2); BILIRUBIN,TOTAL 0.3 mg/dL (0.2-1.0); CALCIUM 9.2 mg/dL (8.5-10.3); CREATININE 0.9 mg/dL (0.6-1.2); POTASSIUM 3.5 mmol/L (3.5-5.0); TOTAL PROTEIN 7.8 g/dL (6.7-8.2)
[2021-07-15] MEDS ORDERED: DEXAMETHASONE 10 MG/ML VIAL IVP STA (22:32)
[2021-07-15] MEDS ORDERED: TAMSULOSIN 0.4 MG CAPSULE PO STA (22:32)
--- NOTE | 2021-07-15 22:42 | CT Report ---
PROCEDURE: Abdomen/Pelvis WO INDICATIONS: LLQ pain; recent kidney stone in May TECHNIQUE: Noncontrast 5 mm thick sections acquired from the diaphragms to the symphysis. 5 mm coronal and sagi ttal reformats were then performed. For radiation dose reduction, the following was used: automated exposure control, adjustment of mA and/or kV according to patient size. COMPARISON: None. FINDINGS: ABDOMEN: Lung bases: No acute findings Heart:Normal. Liver: Normal. Gallbladder: Incidentally noted rim calcified gallstones. No definite gallbladder wall thickening or pericholecystic inflammation. Bile ducts: Normal. Pancreas: Ill-defined fatty infiltration of the head of the pancreas Spleen: Normal. Adrenals: Normal. Kidneys and ureters: Left perinephric stranding and mild enlargement. There is mild to moderate left hydroureteronephrosis and periureteral inflammation related to 7 mm calculus seen at the left uretero vesical junction. This measures 919 Hounsfield units. Additional smaller 2 mm calculus seen adjacent on image 149/3. Stomach and duodenum: Normal. Bowel: Incidental colonic diverticulosis. No evidence of bowel obstruction. Other: No free fluid or air. Abdominal nodes: Normal. Aorta: Normal in sizel. IVC: Normal. Ventral wall: Normal. PELVIS: Bladder: Circumferential bladder wall thickening, technically nonspecific. Pelvic nodes: Normal. Inguinal regions: Small fat-containing inguinal hernias seen bilaterally Bones: No vertebral body compression fracture. No suspicious bone lesion. IMPRESSION: Small to moderately obstructive 7 mm calculus seen at the left ureterovesical junction. Additional ad jacent 2 millimeter distal left ureteral calculus. Additional chronic and incidental findings as above. Reviewed by: Dinesh Potter MD on 07/15/2021 10:41 PM PDT Approved by: Dinesh Potter MD on 07/15/2021 10:41 PM PDT Station ID: [id number]
[2021-07-15] MEDS ORDERED: LIDOCAINE-MPF 2% 9 ML in SODIUM CHLORIDE 0.9% 50 ML IV STA (22:52)
[2021-07-15] MEDS ORDERED: ONDANSETRON ODT 4 MG TABLET TL STA (22:53)
[2021-07-15] MEDS ORDERED: LIDOCAINE-MPF 2% 5 ML VIAL ONE (23:01)
[2021-07-15 23:28] VITALS: BP 173/101
== END 2021-07-15 23:36 | disposition home or self-care (01) ==
LOC: ED 20:58
DX: N13.2 Hydronephrosis with renal and ureteral calculous obstruction (principal); N20.2 Calculus of kidney with calculus of ureter; F17.200 Nicotine dependence, unspecified, uncomplicated
CPT/HCPCS: 36415; 74176; 80053; 83690; 85025; 96374; 96375; 99284; 99285; A9270; J1170; J7040; Q0162